=== PATIENT | female | born 1995 | race Caucasian/White ===

== ENCOUNTER 2022-03-04 11:17 | Emergency (ER) | payer SELFPAY ==
[~2022-03-04] VITALS: Ht 152.4 cm; Wt 51.7 kg
[2022-03-04 11:28] VITALS: BP_SYST 118
== END 2022-03-04 13:30 | disposition left against medical advice (07) ==
LOC: SED 11:17
DX: S22.32XA Fracture of one rib, left side, initial encounter for closed fracture (principal); S40.011A Contusion of right shoulder, initial encounter; S80.02XA Contusion of left knee, initial encounter; Z79.899 Other long term (current) drug therapy; V43.52XA Car driver injured in collision with other type car in traffic accident, initial encounter; Y93.89 Activity, other specified; Y92.89 Other specified places as the place of occurrence of the external cause; Y99.8 Other external cause status
CPT/HCPCS: 99281